=== PATIENT | male | born 1950 | race Caucasian/White ===

== ENCOUNTER 2023-01-18 08:58 | Day surgery (SDC) | payer MEDICARE, BC ==
[~2023-01-18] VITALS: Ht 180.3 cm; Wt 106.2 kg
[2023-01-18 11:24] VITALS: BP 129/83; PULSE 70; TEMP 97.8
[2023-01-18] MEDS ORDERED: PRILOTC (12:45)
[2023-01-18 13:12] VITALS: BP 143/32; PULSE 70; TEMP 97.8
--- NOTE | 2023-01-18 13:12 | NUR ---
1312 THIS NURSE TOOK REPORT FROM OLYA TRAMMELL. THIS NURSE THEN INTRODUCED SELF TO PATIENT AND PATIENT FAMILY. PATIENT IS VERY LETHARGIC, BUT WAKES TO VERBAL STIMULI. RESPIRATIONS EVEN AND UNLABORED. VITAL SIGNS OBTAINED. 1400 PATIENT IS AWAKE AND DRINKING HIS VANILLA SHAKE THAT DAUGHTER BROUGHT FOR HIM. NO DIFFICULTIES SWALLOWING. 1405 DISCONTINUED IV FROM LEFT HAND WITH NO DIFFICULTIES. 1410 THIS NURSE REVIEWED DISCHARGE INSTRUCTIONS WITH PATIENT AND PATIENT . BOTH VERBALIZED UNDERSTANDING. 1420 PATIENT DISCHARGES FROM UNIT VIA WHEELCHAIR IN STABLE CONDITION.
[2023-01-18 13:22] VITALS: BP 112/66; PULSE 67; TEMP 97.7
[2023-01-18 13:32] VITALS: BP 110/63; PULSE 68
[2023-01-18 13:42] VITALS: BP 114/60; PULSE 68
[2023-01-18 14:15] VITALS: BP 117/68; PULSE 73
== END 2023-01-18 14:20 | disposition home or self-care (01) ==
LOC: SDCO 08:58
DX: T18.128A Food in esophagus causing other injury, initial encounter (principal); K29.30 Chronic superficial gastritis without bleeding
CPT/HCPCS: J0330; J1100; J1885; J2405; J2704; J3010; J7120